=== PATIENT | male | born 1985 | race Caucasian/White ===

== ENCOUNTER 2021-03-05 23:21 | Emergency (ER) | payer OTHER ==
[2021-03-06] MEDS ORDERED: LODINE CAP 300300 MG PO (00:23)
== END 2021-03-06 00:37 | disposition home or self-care (01) ==
LOC: ER1 23:21
DX: S63.501A Unspecified sprain of right wrist, initial encounter (principal); S60.221A Contusion of right hand, initial encounter; F17.210 Nicotine dependence, cigarettes, uncomplicated; Y93.01 Activity, walking, marching and hiking
CPT/HCPCS: 73110; 73130; 99283; J1885

== ENCOUNTER → 2021-04-02 | Outpatient (CLI) | payer OTHER ==
[~2021-04-02] MED LIST: LODINE CAP 300300 MG PO
== END ==
LOC: RAD 15:05
DX: Z53.9 Procedure and treatment not carried out, unspecified reason (principal)
CPT/HCPCS: 73090; 73110